=== PATIENT | female | born 1995 | race Caucasian/White ===

== ENCOUNTER 2017-12-18 22:33 | Emergency (ER) | payer BC ==
[~2017-12-18] VITALS: Ht 154.9 cm; Wt 47.6 kg
--- NOTE | 2017-12-18 23:11 | NUR ---
Patient discharged to home in stable conditon. Written and verbal after care instructions given. Patient verbalizes understanding of instructions.
== END 2017-12-18 23:12 | disposition home or self-care (01) ==
LOC: ER 22:40
DX: T78.3XXA Angioneurotic edema, initial encounter (principal); T78.1XXA Other adverse food reactions, not elsewhere classified, initial encounter; F17.200 Nicotine dependence, unspecified, uncomplicated; K21.9 Gastro-esophageal reflux disease without esophagitis; X58.XXXA Exposure to other specified factors, initial encounter; Y93.89 Activity, other specified; Y92.89 Other specified places as the place of occurrence of the external cause; Y99.8 Other external cause status
CPT/HCPCS: A4663

== ENCOUNTER 2018-04-04 14:20 | Emergency (ER) | payer BC ==
[~2018-04-04] VITALS: Ht 154.9 cm; Wt 45.8 kg
--- NOTE | 2018-04-04 15:12 | NUR ---
PATIENT WAS SEEN BY MD WITH ME AT BEDSIDE FOR PELVIC EXAM/CULTURE...
[2018-04-04] MEDS ORDERED: ONDA4TAB5 PO (15:16)
[2018-04-04] MEDS ORDERED: RANI300C PO (15:16)
[2018-04-04] MEDS ORDERED: SERT25TA PO (15:17)
--- NOTE | 2018-04-04 15:52 | NUR ---
AWAITING TEST RESULTS...
[2018-04-04 16:28] LABS: *BILIRUBIN,URIN NEGATIVE (NEGATIVE); *BLOOD, URINE NEGATIVE (NEGATIVE); *CLARITY,URINE CLEAR (CLEAR); *COLOR,URINE YELLOW (YELLOW); *KETONES,URINE NEGATIVE (NEGATIVE); *URINE HCG, QUAL NEGATIVE (NEGATIVE); *UROBILINOGEN,URINE 0.2 E.U./dl (NORMAL); LEUKOCYTE ESTERASE ,URINE NEGATIVE (NEGATIVE); NITRITE, URINE NEGATIVE (NEGATIVE); PH,URINE 7.5 (5.0-8.0); UGLUCOSE NEGATIVE (NEGATIVE)
[2018-04-04 16:36] LABS: BACTERIA,URINE NONE SEEN /HPF (NONE SEEN); RBC,URINE 0-3 /HPF (0-3); SQUAMOUS EPITHELIAL CELL,UR FEW /HPF (NONE SEEN); WBC,URINE 0-3 /HPF (0-3)
--- NOTE | 2018-04-04 16:46 | NUR ---
DR VILA AT BEDSIDE SPEAKING TO PATIENT. DC AND FOLLOW UP INSTRUCTIONS GIVEN AND EXPLAINED TO PATIENT WHO STATES SHE UNDERSTANDS ALL INSTRUCTIONS.
== END 2018-04-04 16:49 | disposition home or self-care (01) ==
LOC: ER 14:22
DX: N83.202 Unspecified ovarian cyst, left side (principal); K21.9 Gastro-esophageal reflux disease without esophagitis; F17.200 Nicotine dependence, unspecified, uncomplicated; Z79.899 Other long term (current) drug therapy
CPT/HCPCS: 76856; 84703; 87081; 87110; A4663

== ENCOUNTER 2018-05-08 23:58 | Emergency (ER) | payer BC ==
[~2018-05-08] VITALS: Ht 154.9 cm; Wt 45.8 kg
[~2018-05-08 23:58] MED LIST: ONDA4TAB5 PO; RANI300C PO; SERT25TA PO
[2018-05-09] MEDS: OXYCODONE/APAP 5-325 MG TABLET PO ONE (00:26)
[2018-05-09] MEDS ORDERED: ONDANSETRON ODT 4 MG TAB.RAPDIS ONE (00:29)
[2018-05-09] MEDS: ONDANSETRON ODT 4 MG TAB.RAPDIS SL ONE (00:29)
[2018-05-09 01:44] VITALS: BP 116/64
== END 2018-05-09 01:46 | disposition home or self-care (01) ==
LOC: ER 23:59
DX: R10.2 Pelvic and perineal pain (principal); R51 Headache; K21.9 Gastro-esophageal reflux disease without esophagitis; F17.290 Nicotine dependence, other tobacco product, uncomplicated; Z79.899 Other long term (current) drug therapy
CPT/HCPCS: 76856; A4663; Q0162